=== PATIENT | male | born 1940 | race Caucasian/White ===

== ENCOUNTER 2017-11-28 15:55 | Inpatient (IN) | payer MEDICARE, OTHER ==
[~2017-11-28] VITALS: Ht 172.7 cm; Wt 89.5 kg
[2017-11-28] MEDS ORDERED: HCTZ (16:42)
[2017-11-28] MEDS ORDERED: COREG (16:42)
[2017-11-28] MEDS ORDERED: ENALAPRIL (16:42)
[2017-11-28] MEDS ORDERED: METFORMIN (16:42)
[2017-11-28] MEDS ORDERED: LIPITOR (16:42)
[2017-11-28] MEDS ORDERED: NITROGLYCERIN SINGLE TAB 0.4 MG SL PRN (17:00)
[2017-11-28] MEDS ORDERED: MORPHINE SULFATE 4 MG/ML, 1ML ONE ×2 (17:00→18:08)
[2017-11-28] MEDS ORDERED: SODIUM CHLORIDE FLUSH 10ML SYR IVF ONE (17:00)
[2017-11-28 17:24] LABS: BASOPHILS # (AUTO) 0.03 x10^3/uL (0-0.1); BASOPHILS % (AUTO) 0 % (0-1); EOSINOPHILS # (AUTO) 0.39 x10^3/uL (0-0.4); EOSINOPHILS % (AUTO) 4 % (1-7); LYMPHOCYTES % (AUTO) 16 % (22-44); MD NO; MEAN CORPUSCULAR HEMOGLOBIN 27.9 pg (27.5-34.5); MEAN CORPUSCULAR HGB CONC 33.1 g/dL (33.2-36.2); MEAN CORPUSCULAR VOLUME 84.3 fL (81-97); MEAN PLATELET VOLUME 9.4 fL (7.4-10.4); MONOCYTES # (AUTO) 1.01 x10^3/uL (0.2-0.8); MONOCYTES % (AUTO) 9 % (2-9); NEUTROPHILS # (AUTO) 7.75 x10^3/uL (1.8-6.8); NEUTROPHILS % (AUTO) 71 % (42-75); PLATELET COUNT 258 x10^3/uL (130-400); RED BLOOD COUNT 4.68 x10^6/uL (4.38-5.82); RED CELL DISTRIBUTION WIDTH 13.8 % (9.4-14.8)
[2017-11-28] MEDS: MORPHINE SULFATE 4 MG/ML, 1ML IVPush PRN ×2 (17:32→18:10)
[2017-11-28 17:36] LABS: ANION GAP 12 mmol/L (5-15); CALCIUM 9.4 mg/dL (8.5-10.1); CHLORIDE 105 mmol/L (98-107); CREATININE 1.04 mg/dL (0.7-1.3)
[2017-11-28 17:37] LABS: ALANINE AMINOTRANSFERASE 37 U/L (12-78); ALBUMIN 3.7 g/dL (3.4-5.0)
[2017-11-28 17:41] LABS: ALKALINE PHOSPHATASE 122 U/L (45-117); BILIRUBIN,TOTAL 0.6 mg/dL (0.2-1.0); TOTAL PROTEIN 7.8 g/dL (6.4-8.2)
[2017-11-28 17:43] LABS: TROPONIN I 0.465 ng/mL (0.000-0.045)
[2017-11-28] MEDS ORDERED: NITROGLYCERIN SINGLE TAB 0.4 MG SL ONE (17:54)
[2017-11-28 18:50] VITALS: BP 108/78
[2017-11-28] MEDS ORDERED: SODIUM CHLORIDE FLUSH 10ML SYR IVF PRN (19:00)
[2017-11-28 19:11] LABS: INTERNATIONAL NORMALIZED RATIO 1.02 (0.93-1.1); PROTHROMBIN TIME 10.5 Seconds (9.6-11.5)
[2017-11-28] MEDS ORDERED: FENTANYL PF 100 MCG/2ML ONE (19:13)
[2017-11-28] MEDS ORDERED: MIDAZOLAM 1 MG/ML, 5ML ONE (19:13)
[2017-11-28] MEDS ORDERED: HEPARIN 1,000 UNITS/ML, 10ML ONE (19:14)
[2017-11-28] MEDS ORDERED: TICAGRELOR 90 MG TABLET ONE (19:14)
[2017-11-28] MEDS ORDERED: NITROGLYCERIN 5 MG/ML, 10ML ONE (19:14)
[2017-11-28] MEDS ORDERED: BIVALIRUDIN 250 MG ONE (19:14)
[2017-11-28] MEDS ORDERED: ONDANSETRON 2MG/ML, 2ML IVPush PRN (19:30)
[2017-11-28] MEDS ORDERED: morphine SULFATE 10 MG/ML, 1ML IVPush PRN (19:30)
[2017-11-28] MEDS ORDERED: ACETAMINOPHEN 325 MG TABLET PO PRN (19:30)
[2017-11-28] MEDS ORDERED: INSULIN LISPRO 100 UNITS/ML, PEN SQ-INSULIN SCH (19:30)
[2017-11-28] MEDS ORDERED: BISACODYL 10 MG SUPP PR PRN (19:30)
[2017-11-28 19:53] LABS: HEMOGLOBIN A1C 8.7 % (4.2-6.3)
[2017-11-28] MEDS ORDERED: ONDANSETRON 2MG/ML, 2ML ONE (20:07)
[2017-11-28] MEDS ORDERED: DOPAMINE 400 MG/10 ML ONE (21:00)
[2017-11-28] MEDS ORDERED: SODIUM CHLORIDE FLUSH 10ML SYR IVF SCH (21:00)
[2017-11-28] MEDS ORDERED: EPINEPHRINE 1 MG/ML, 1ML ONE ×2 (21:00→21:10)
[2017-11-28] MEDS ORDERED: EPINEPHRINE SYRINGE 0.1 MG/ML, 10ML ONE ×2 (21:04→21:10)
[2017-11-28] MEDS ORDERED: PHENYLEPHRINE 10 MG/ML ONE (21:04)
[2017-11-28] MEDS ORDERED: NOREPINEPHRINE 1 MG/ML, 4ML ONE (21:10)
[2017-11-28] MEDS ORDERED: ATROPINE SYRINGE 0.1 MG/ML, 10ML ONE (21:10)
[2017-11-28] MEDS ORDERED: AMIODARONE 50 MG/ML, 3ML ONE (21:10)
[2017-11-28] MEDS ORDERED: CODE BLUE RESPONSE XX ONE (21:30)
== END 2017-11-28 20:41 | disposition expired | DRG 250 ==
LOC: ED 17:34 → EDIP 18:59 → UNDOADMIN 18:59 → EDIP 21:13 → CCU 21:13 → UNDODISIN 11-29 01:35
PROVIDERS: ADMIT Internal Medicine; ATTEND Internal Medicine
PROC: 02703ZZ Dilation of Coronary Artery, One Artery, Percutaneous Approach (ICD-10-PCS; principal; 2017-11-28)
PROC: 4A023N7 Measurement of Cardiac Sampling and Pressure, Left Heart, Percutaneous Approach (ICD-10-PCS; 2017-11-28)
PROC: B2111ZZ Fluoroscopy of Multiple Coronary Arteries using Low Osmolar Contrast (ICD-10-PCS; 2017-11-28)
PROC: B2131ZZ Fluoroscopy of Multiple Coronary Artery Bypass Grafts using Low Osmolar Contrast (ICD-10-PCS; 2017-11-28)
PROC: B2181ZZ Fluoroscopy of Left Internal Mammary Bypass Graft using Low Osmolar Contrast (ICD-10-PCS; 2017-11-28)
PROC: 0BH17EZ Insertion of Endotracheal Airway into Trachea, Via Natural or Artificial Opening (ICD-10-PCS; 2017-11-28)
PROC: 5A12012 Performance of Cardiac Output, Single, Manual (ICD-10-PCS; 2017-11-28)
DX: I21.09 ST elevation (STEMI) myocardial infarction involving other coronary artery of anterior wall (principal); I50.33 Acute on chronic diastolic (congestive) heart failure; J96.10 Chronic respiratory failure, unspecified whether with hypoxia or hypercapnia; I25.810 Atherosclerosis of coronary artery bypass graft(s) without angina pectoris; E11.9 Type 2 diabetes mellitus without complications; E78.5 Hyperlipidemia, unspecified; E87.6 Hypokalemia; H91.90 Unspecified hearing loss, unspecified ear; I10 Essential (primary) hypertension; I49.01 Ventricular fibrillation; K82.9 Disease of gallbladder, unspecified; E66.01 Morbid (severe) obesity due to excess calories; R57.0 Cardiogenic shock; Z85.830 Personal history of malignant neoplasm of bone; Z88.6 Allergy status to analgesic agent; Z95.1 Presence of aortocoronary bypass graft; Z88.8 Allergy status to other drugs, medicaments and biological substances; Z68.30 Body mass index [BMI] 30.0-30.9, adult; Z89.611 Acquired absence of right leg above knee; Z89.511 Acquired absence of right leg below knee; Z89.612 Acquired absence of left leg above knee
CPT/HCPCS: 36415; 71045; 80053; 83036; 84484; 85025; 85610; 85730; 92950; 93005; 93459; 96374; 96376; 99156; 99157; 99285; C1769; C1894; G0378; J0171; J0461; J0583; J1265; J1644; J2250; J2405; J3010; C1725; C1887; J0282; J2370; Q9967